=== PATIENT | female | born 1955 | race Caucasian/White ===

== ENCOUNTER 2016-10-03 09:35 | Emergency (ER) | payer SELFPAY ==
[~2016-10-03] VITALS: Ht 154.9 cm; Wt 60.1 kg
[~2016-10-03 09:35] MED LIST: CYCL-375 PO; HYDR-4246 PO; IBUP-1724 PO; LISI1TAB9 PO
[2016-10-03 09:40] VITALS: Ht 154.9 cm; Wt 60.1 kg
--- OUTSIDE RECORDS SUMMARY | 2016-10-03 09:40 | XMS REPORT ---
Author Author [facility], [facility] - Organization Unknown Address Unknown Phone Unavailable Allergies, Adverse Reactions, Alerts * No Latex Allergy. * No IV Contrast Allergy. * No Known Drug Allergies. * No Known Food Allergies. * No Known Allergies. Problems No relevant problems exist. Procedures No Procedures Documented. Medication Medication reconciliation has not been performed. Results LAB--MICROBIOLOGY from 09/19/2012 2:38 PMGroup A Strep, Rapid Antigen Screen Source: Throat Collected: 09/19/12 14:38 Site: Received : 09/19/12 14:44 Order#: [id number] Group A Strep, Rapid Antigen Screen FINAL 09/19/12 14:54 Negative GRACIA FOR RESULTS: * - NEW RESULT - RESULT WAS MODIFIED AFTER FINAL STATUS SET
--- OUTSIDE RECORDS SUMMARY | 2016-10-03 09:40 | XMS REPORT | CCD ---
Author Author [facility], [facility] - Organization Unknown Address Unknown Phone Unavailable Allergies, Adverse Reactions, Alerts * No Latex Allergy. * No IV Contrast Allergy. * No Known Drug Allergies. * No Known Food Allergies. * No Known Allergies. Problems No relevant problems exist. Procedures No relevant procedures performed. Medication Medication reconciliation has not been performed. Results LAB--URINE TESTS from 03/25/2013 6:05 PMAppearance Turbid A Bilirubin Negative (Negative ) Blood Pos 3+ A (Negative ) Color Dk Yellow Glucose Negative (Negative ) Ketones, Urine Pos 1+ A (Negative ) Leukocytes Esterase Pos 2+ A (Negative ) Nitrites Negative (Negative ) pH, Urine 5.0 (5.0-8.0 ) Protein Pos 1+ A (Negative ) Specific Bock 1.024 (1.003-1.030 ) Collection Type: Clean Catch Urobilinogen 1.0 mg/dL (-<1.0 mg/dL) Bacteria Moderate A Epithelial Cells 5-10 /HPF Hyaline Casts 4-6 /LPF A (0-3 /LPF) Mucus Present RBC >50 /HPF A (0-2 /HPF) WBC >50 /HPF A (0-4 /HPF)
--- OUTSIDE RECORDS SUMMARY | 2016-10-03 09:42 | XMS REPORT | Continuity of Care Document ---
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 mmol/L 21-32 CALCIUM IONIZED 4.8 mg/dL 4.5-5.3 TROPONIN I BEDSIDE - 01/07/16 12:24 METHOD Bedside TROPONIN I < 0.04 ng/mL < 0.11 TROPONIN I BEDSIDE - 01/07/16 13:40 METHOD Bedside TROPONIN I < 0.04 ng/mL < 0.11 CHEM/HEM PROFILE-BEDSIDE - 03/24/16 11:17 POTASSIUM 3.8 mmol/L 3.5-5.3 METHOD Bedside ANION GAP 17 mmol/L 10-20 METHOD Bedside GLUCOSE 86 mg/dL 70-99 BLOOD UREA NITROGEN 10 mg/dL 7-20 CREATININE 0.8 mg/dL 0.6-1.0 HEMOGLOBIN 12.6 gm/dL 12.0-16.0 HEMATOCRIT 37.0 % 37.0-47.0 SODIUM 140 mmol/L 135-148 CHLORIDE 100 mmol/L 98-110 CARBON DIOXIDE 28 mmol/L 21-32 CALCIUM IONIZED 5.1 mg/dL 4.5-5.3 TROPONIN I BEDSIDE - 03/24/16 11:19 METHOD Bedside TROPONIN I < 0.04 ng/mL < 0.11 CBC W/DIFF - 03/24/16 11:21 BASOPHIL # 0.1 k/cumm 0.0-0.2 BASOPHIL % 2 % 0-1 EOSINOPHIL # 0.2 k/cumm 0.1-0.5 EOSINOPHIL % 3 % 2-4 GRANULOCYTE # 3.5 k/cumm 2.0-9.0 GRANULOCYTE % 60 % 50-75 LYMPHOCYTE # 1.5 k/cumm 1.0-4.0 LYMPHOCYTE % 27 % 20-30 MEAN CELL HGB 30.5 pg 27.0-33.0 MEAN CELL HGB CONCENTRATION 32.7 g/dL 32.0-37.0 MEAN CELL VOLUME 93.6 fl 80.0-100.0 MONOCYTE # 0.5 k/cumm 0.1-1.0 MONOCYTE % 9 % 4-6 RED BLOOD CELL 4.19 m/cumm 4.00-6.00 RED CELL DISTRIBUTION WIDTH 12.5 % 11.0- 15.6 WHITE BLOOD CELL 5.8 k/cumm 5.0-10.0 HEMOGLOBIN 12.8 gm/dL 12.0-16.0 HEMATOCRIT 39.2 % 37.0-47.0 PLATELET COUNT 241 k/cumm 150-400 Encounters ACCT No. Visit Date/Time Discharge Status Pt. Type Provider Facility Loc./Unit Complaint [id number] 10/07/2013 07:43:00 2013 09:40:00 DIS Emergency Brenden CHAN, [facility] on [address] [id number] 10/04/2013 22:00:00 2013 23:59:59 CLS Emergency Nikkie CHAN, Adrián Matthews [facility] [id number] 06/17/2013 09:39:00 2013 13:19:00 DIS Emergency Rosi Hahn MD [facility] [id number] 06/15/2013 09:15:00 2013 10:45:00 DIS Emergency Mendel Pike DO [facility] [id number] 05/12/2013 13:49:00 2012 18:30:00 DIS Emergency Gayle Osuna MD [facility] [id number] 05/04/2013 13:40:00 2012 14:12:00 DIS Emergency Rex Gaytan MD [facility] [id number] 03/25/2013 17:43:00 2012 19:31:00 DIS Emergency Rex Gaytan MD [facility] [id number] 02/09/2013 13:59:00 2012 14:51:00 DIS Emergency Nazario Austin MD [facility] [id number] 01/31/2013 15:09:00 2012 17:31:00 DIS Emergency Rex Gaytan MD [facility] [id number] 09/19/2012 14:15:00 2012 16:04:00 DIS Emergency Nazario Austin MD [facility] [id number] 08/08/2012 18:36:00 2012 20:47:00 DIS Emergency Rex Gaytan MD [facility] [id number] 07/24/2012 19:35:00 2012 20:53:00 DIS Emergency Rex Gaytan MD [facility] [id number] 05/24/2012 14:42:00 2011 17:55:00 DIS Emergency Malcolm Cano DO [facility]
[2016-10-03] MEDS ORDERED: ACET-62 PO (10:12)
--- NOTE | 2016-10-03 10:20 | NUR ---
TO LEONARD CHAIR 7
--- OUTSIDE RECORDS SUMMARY | 2016-10-03 11:19 | XMS REPORT | CCD ---
Author Author [place] - Organization Unknown Address Unknown Phone Unavailable [...] Protein Pos 1+ A (Negative ) Specific [place] 1.024 (1.003-1.030 ) Collection Type: Clean Catch Urobilinogen 1.0 mg/dL (-<1.0 mg/dL) Bacteria Moderate A Epithelial Cells 5-10 /HPF Hyaline Casts 4-6 /LPF A (0-3 /LPF) Mucus Present RBC >50 /HPF A (0-2 /HPF) WBC >50 /HPF A (0-4 /HPF)
--- OUTSIDE RECORDS SUMMARY | 2016-10-03 11:19 | XMS REPORT ---
Author Author [place], [facility] - Organization Unknown Address Unknown [...] 14:38 Site: Received : 09/19/12 14:44 Order#: [id number] Group A Strep, Rapid Antigen Screen FINAL 09/19/12 14:54 Negative GRACIA FOR RESULTS: * - NEW RESULT - RESULT WAS MODIFIED AFTER FINAL STATUS SET
--- OUTSIDE RECORDS SUMMARY | 2016-10-03 11:20 | XMS REPORT | Continuity of Care Document ---
Author Author [facility] Organization [facility] Address Unknown Phone Unavailable Allergies Active Description [...] Osuna MD Final 490 BRONCHITIS NOS 05/12/2013 Gayel Osuna MD Admitting 786.50 CHEST PAIN NOS [...] CHEST PAIN 03/10/2015 Magaly Coleman MD Z79.82 JAIL (CURRENT) USE OF ASPIRIN 03/10/2015 Magaly Coleman [...] % 37.0-47.0 PLATELET COUNT 200 k/cumm 150-400 [facility] RENAL FUNCTION PANEL - 03/11/15 07:42 POTASSIUM [...] Status Pt. Type Provider Facility Loc./Unit Complaint [id number] 10/07/2013 07:43:00 2013 09:40:00 DIS Emergency Brenden CHAN, [facility] on [address] [id number] 10/04/2013 22:00:00 2013 23:59:59 CLS Emergency Nikkie CHAN, Adrián Matthews [facility] [id number] 06/17/2013 09:39:00 2013 13:19:00 DIS Emergency Rosi Hahn MD [facility] [id number] 06/15/2013 09:15:00 2013 10:45:00 DIS Emergency Mendel Pike DO [facility] [id number] 05/12/2013 13:49:00 2012 18:30:00 DIS Emergency Gayle Osuna MD [facility] [id number] 05/04/2013 13:40:00 2012 14:12:00 DIS Emergency Rex Gaytan MD [facility] [id number] 03/25/2013 17:43:00 2012 19:31:00 DIS Emergency Rex Gaytan MD [facility] [id number] 02/09/2013 13:59:00 2012 14:51:00 DIS Emergency Nazario Austin MD [facility] [id number] 01/31/2013 15:09:00 2012 17:31:00 DIS Emergency Rex Gaytan MD [facility] [id number] 09/19/2012 14:15:00 2012 16:04:00 DIS Emergency Nazario Austin MD [facility] [id number] 08/08/2012 18:36:00 2012 20:47:00 DIS Emergency Rex Gaytan MD [facility] [id number] 07/24/2012 19:35:00 2012 20:53:00 DIS Emergency Rex Gaytan MD [facility] [id number] 05/24/2012 14:42:00 2011 17:55:00 DIS Emergency Malcolm Cano DO [facility]
--- NOTE | 2016-10-03 12:25 | NUR ---
DR GODINEZ IN
--- NOTE | 2016-10-03 12:47 | ERPDOC ---
Departure Disposition Decision Date: Oct 03, 2016 Disposition Decision Time: 12:47 Disposition: 01 DISCHARGED HOME, SELF-CARE Impression Impression Impression: Primary Impression: Sinusitis Additional Impression: Bronchitis Severity: Moderate Condition: Improved Seen By: Physician only Referrals: HORACIO BREWSTER DO (Family) Patient Instructions: Sinusitis (ED) Problems/Meds/Labs Reviewed?: Yes Medications reviewed and manag: Yes Additional Instructions: Bactrim DS 1 tablet twice daily for 10 days. Prednisone 10 mg tablet, 3 tablets daily for 3 days, 2 tablets daily for 3 days , 1 tablet daily for 3 days. He has Percocet as needed for pain at night. Follow up care ordered?: Yes Mental Status: Alert, Oriented Scripts Prednisone (Prednisone) 10 Mg Tablet 0 PO TAPERQD, #18 TAB 30 mg daily x3 days 20 mg daily x3 days 10 mg daily x2 days Prov: MERA GODINEZ MD 10/03/16 HPI - Cough/URI General Chief Complaint: Cough,Fever,Flu,URI Stated Complaint: DIFFICULTY BREATHING Time Seen by Provider: 11:14 HPI - Cough/URI Initial Comments 7-year-old female with cough, sinus pressure and drainage for 5 days. She has not been on any antibiotics recently, has not seen her primary care provider. She did not sleep well last night because of the pain, feels like every time she lays down her nose swollen shut and the pressure increases. She leans forward the pressure also increases. Appetite is diminished. She has had some coughing with this. Allergies: Coded Allergies: No Known Allergies (Unverified , 07/13/16) Past History Past Medical History Metabolic: hypertension Musculoskeletal: back pain Surgical History General: back Family History Family PMH: FOUND: diabetes Social History Smoking Status: Current every day smoker Substance Use Type: does not use Alcohol Intake: none Record Review Pertinent history updated: Yes Review of Systems ENMT Sinuses: see HPI Nose: see HPI Mouth/Throat: see HPI Pulmonary Respiratory: see HPI All other Systems All Other Systems: Reviewed and Negative Physical Exam General General Nourishment: well nourished, well developed, appears stated age, no acute distress General Body Habitus: well groomed Vitals and Pain First Documented Vital Signs Date Time Temp Pulse Resp B/P Pulse Ox O2 Delivery O2 Flow Rate FiO2 10/03/16 09:40 98.1 80 18 156/79 10/03/16 12:15 98 Room Air Weight: Kilograms: 60.100 Height (feet): 5 Height (inches): 1.00 Triage Pain Scale: Normal Exams: Head: Normocephalic w/o trauma Chest/Resp: with good airflow, and symmetry bilaterally CV: Regular rate and rhythm, without murmur or gallop, Pulses 2+ all extremities, capillary refill, <2 seconds all ext., no pedal edema noted Abdomen: Bowel sounds positive, soft, non-tender, non-distended, no hepatosplenomegaly, masses or bruits noted Neurologic: Patient is alert, and oriented, cranial nerves, motor/sensory/ cerebellar, exams w/o gross deficits, to observation Psychiatric: Patient exhibits, appropriate attention, emotion and affect ENMT (brief) Comments TMs pearly white bilateral, nares red and boggy bilateral post nasal drainage noted in the oropharynx. Anterior cervical nodes palpable bilateral Respiratory (brief) Comments Minimal wheezing heard. Differential Diagnoses Differential Diagnoses Considering: Asthma Exacerbation, Foreign Body, Mastoiditis, Sinusitis, Strep, Viral Syndrome Progress Progress Progress Sinusitis, bilateral maxillary. Patient be treated with Bactrim DS 1 tablet twice a day for 10 days, prednisone burst and taper. Recommend smoking cessation. Patient did ask for something for pain for the headaches that she can sleep at night. I'll give her Percocet 5 mg tablets #5 tablets total to be used one daily at bedtime as needed headache. MERA GODINEZ MD Oct 03, 2016 12:47
[2016-10-03] MEDS ORDERED: PRED10TA PO (12:49)
[2016-10-03] MEDS ORDERED: OXYC1TAB8 PO (12:53)
[2016-10-03] MEDS ORDERED: SULF1TAB42 PO (12:53)
[2016-10-03 13:00] VITALS: BP 157/80; PULSE 65; RESP 16; TEMP 97.6; O2SAT 98
== END 2016-10-03 13:00 | disposition home or self-care (01) ==
LOC: ED 09:35
DX: J32.0 Chronic maxillary sinusitis (principal); J40 Bronchitis, not specified as acute or chronic; F17.200 Nicotine dependence, unspecified, uncomplicated